=== PATIENT | male | born 1985 | race Two or more races ===

== ENCOUNTER 2022-01-18 03:33 | Emergency (ER) | payer SELFPAY ==
[~2022-01-18] VITALS: Ht 167.6 cm; Wt 63.6 kg
[2022-01-18 04:00] VITALS: BP 124/76
[2022-01-18 04:16] LABS: APPEARANCE,URINE CLEAR (CLEAR); BILIRUBIN,URINE NEGATIVE (NEGATIVE); GLUCOSE, URINE (UA) NEGATIVE (NEGATIVE); KETONES,URINE NEGATIVE (NEGATIVE); LEUKOCYTE ESTERASE ,URINE LARGE (NEGATIVE); NITRATE,URINE NEGATIVE (NEGATIVE); OCCULT BLOOD,URINE TRACE (NEGATIVE); PH,URINE 6.5 (5.0-8.0); PROTEIN,URINE NEGATIVE (NEGATIVE); SPECIFIC GRAVITIY, URINE 1.022 (1.003-1.030); UROBILINOGEN,URINE <=1.0 mg/dL (<=1.0)
[2022-01-18 04:34] LABS: BACTERIA,URINE Few /HPF (None Seen); RBC,URINE 0-2 /HPF (0-2); WBC,URINE 51-100 /HPF (0-5)
[2022-01-18 04:35] LABS: SQUAMOUS EPITHELIAL CELL,UR None Seen /LPF (None Seen); YEAST,URINE None Seen /HPF (None Seen)
[2022-01-18] MEDS ORDERED: NYST30OI6 TP (04:44)
[2022-01-18] MEDS ORDERED: AZITHROMYCIN 500 MG TABLET PO ONE (04:45)
[2022-01-18] MEDS ORDERED: LIDOCAINE/PF 1% 2 ML VIAL IM ONE (04:45)
[2022-01-18] MEDS ORDERED: CefTRIAXone SODIUM 1 GM/VIAL IM ONE (04:45)
== END 2022-01-18 04:50 | disposition home or self-care (01) ==
LOC: EMS 03:39
DX: A64 Unspecified sexually transmitted disease (principal); N48.1 Balanitis
CPT/HCPCS: 81001; 87086; 87491; 87591; 96372; 99283; J0696; J3490; Q9967